=== PATIENT | female | born 1980 | race Caucasian/White ===

== ENCOUNTER 2019-05-04 10:25 | Outpatient (CLI) | payer OTHER, SELFPAY ==
--- NOTE | ~2019-05-04 | MM_ITS ---
EXAMINATION: MM screening [place] BI w talia HISTORY: Screening mammogram TECHNIQUE: Craniocaudal and mediolateral oblique 3-D tomosynthesis images were obtained and synthetic 2-D images were generated. CAD analysis was submitted and interpreted. COMPARISON: No prior mammogram is available for comparison at this institution. BREAST PARENCHYMAL COMPOSITION: The breasts are almost entirely fatty. FINDINGS: There are numerous punctate benign-appearing microcalcifications of the breast. There are several small left low-density circumscribed opacities most consistent with benign axillary tail and lower outer quadrant intramammary lymph nodes. There is an indeterminate approximately 3.8 mm opacity situated posteriorly in the upper right breast on MLO view. Diagnostic right mammogram is recommended for more definitive evaluation. Otherwise there is no evidence of suspicious mass, calcification, or architectural distortion to sugg est malignancy in either breast. IMPRESSION: 1. 3.8 mm indeterminate opacity situated posteriorly in the upper right breast on MLO view. 2. Diagnostic left mammogram is recommended, with ultrasound if required. BI-RADS Category 0: Incomplete: Needs additional imaging evaluation. Reviewed, dictated and finalized at location A.
== END 2019-05-04 10:26 | disposition home or self-care (01) ==
LOC: ANHIMG 10:31
PROVIDERS: Visit Provider Nurse Practitioner Family
DX: Z12.31 Encounter for screening mammogram for malignant neoplasm of breast (principal); R92.8 Other abnormal and inconclusive findings on diagnostic imaging of breast
CPT/HCPCS: 77063; 77067

== ENCOUNTER 2019-06-21 12:55 | Outpatient (CLI) | payer OTHER, SELFPAY ==
--- NOTE | ~2019-06-21 | MMUS_ITS ---
EXAMINATION: MM diagnostic britany RT w talia, US breast RT limited HISTORY: 3.8 mm indeterminate opacity noted posteriorly in the upper right breast on 05/04/2019 screen ing mammogram TECHNIQUE: Additional 3-D tomosynthesis images of the right breast were performed and synthetic 2-D i mages were generated. CAD analysis was submitted and interpreted. High resolution upper outer quadran t right breast ultrasound was performed. COMPARISON: 05/04/2019 bilateral digital screening mammogram BREAST PARENCHYMAL COMPOSITION: There are scattered areas of fibroglandular density. FINDINGS: MAMMOGRAPHIC FINDINGS: 2 small circumscribed benign-appearing opacities are noted posteriorly in the upper outer quadrant, m easuring approximately 6 mm or smaller, likely small benign intramammary lymph nodes. ULTRASOUND: No suspicious mass is noted. Small subcentimeter axillary tail lymph nodes. IMPRESSION: 1. No mammographic evidence of malignancy 2. Routine annual mammographic screening follow-up is recommended. BI-RADS Category 2: Benign finding(s). Reviewed, dictated and finalized at location A. IMPRESSION: 1. No mammographic evidence of malignancy 2. Routine annual mammographic screening follow-up is recommended. BI-RADS Category 2: Benign finding(s).
== END 2019-06-21 12:56 | disposition home or self-care (01) ==
LOC: ANHIMG 12:58
PROVIDERS: Visit Provider Nurse Practitioner Family
DX: R92.8 Other abnormal and inconclusive findings on diagnostic imaging of breast (principal)
CPT/HCPCS: 76642; 77061; 77065; G0279

== ENCOUNTER 2021-08-26 18:05 | Emergency (ER) | payer BC, SELFPAY ==
[2021-08-26 18:18] VITALS: BP 124/78; PULSE 70; RESP 16; TEMP 37.4; O2SAT 100
--- NOTE | 2021-08-26 18:18 | ED.FEMALEGU ---
HPI - Female Genitourinary General Chief complaint: Urogenital-Female Stated complaint: uti symptoms Time Seen by Provider: 08/26/21 18:18 Source: patient Mode of arrival: ambulatory Limitations: no limitations History of Present Illness HPI Narrative: 41-year-old female presents with complaint of urinary frequency, urgency dysuria for 3 days. Reports that her mom is a nurse and had leftover Bactrim and gave her 3 tablets. Patient states that your dysuria is worse today. No fever chills. No nausea vomiting. Denies back and flank pain. No recent antibiotic use. Last UTI was 1 year ago. All systems reviewed and negative except as noted above. Related Data Allergies Allergy/AdvReac Type Severity Reaction Status Date / Time Penicillins Allergy Mild Unknown Verified 08/26/21 18:23 Review of Systems Review of Systems: CONSTITUTIONAL: Denies fever, chills, or sweats. EYES: Denies visual changes, redness, or discharge. ENT: Denies rhinorrhea, congestion, sore throat, or otalgia. CARDIOVASCULAR: Denies chest pain, palpitations, or edema. RESPIRATORY: Denies cough or dyspnea. GASTROINTESTINAL: Denies abdominal pain, nausea, vomiting, or diarrhea. GENITOURINARY: Reports dysuria, urgency, frequency. Denies hematuria. SKIN: Denies rash or itching. MUSCULOSKELETAL: Denies back pain, joint pain, or myalgia. NEUROLOGIC: Denies headache, numbness, or weakness. PSYCHIATRIC: Denies anxiety or depression. All other systems reviewed are negative, except as documented in HPI. PMFSH Comments At time of signature, agree with nursing past medical, surgical, social and family history. There is no relevant family history pertinent to the presenting complaint. Exam Narrative: GENERAL: This is a well-nourished, well-developed patient, in no apparent distress. HEAD: normocephalic, atraumatic. EYES: PERRL. Sclera clear/white. Vision is grossly intact. EARS: External ears normal NOSE: External nose normal NECK: Neck supple, non-tender without lymphadenopathy, masses or thyromegaly. CARDIOVASCULAR: Regular rate and rhythm without murmurs, gallops, or rubs. RESPIRATORY: Clear to auscultation. Breath sounds equal bilaterally. No wheezes, rales, or rhonchi. SKIN: warm, Dry, intact with no suspicious lesions or rash, good texture and turgor. NEURO: awake, alert, and oriented to person, place and time. There were no obvious focal neurologic abnormalities. EXTREMITIES: No joint tenderness, effusion, or edema noted. Course Course Level of Care: Express Care Visit Vital Signs Vital signs: Vital Signs Temperature 37.4 C 08/26/21 18:18 Pulse Rate 70 08/26/21 18:18 Respiratory Rate 16 08/26/21 18:18 Blood Pressure 124/78 08/26/21 18:18 Pulse Oximetry 100 08/26/21 18:18 Oxygen Delivery Room Air 08/26/21 18:18 Temperature 37.4 C 08/26/21 18:18 Pulse Rate 70 08/26/21 18:18 Respiratory Rate 16 08/26/21 18:18 Blood Pressure 124/78 08/26/21 18:18 Pulse Oximetry 100 08/26/21 18:18 Oxygen Delivery Room Air 08/26/21 18:18 Reviewed MDM - Female Genitourinary MDM Narrative Medical decision making narrative: Urine analysis leukocytes 1+, positive nitrite, blood 3+. We will treat for urinary tract infection. Patient has taken 3 doses of Bactrim with no relief. Will start Macrobid Patient is aware of diagnosis, understands and agrees to treatment plan. Anticipatory guidance given. Patient agrees to follow-up as directed and is aware of reasons to seek care at the emergency department. Portions of this record may have been created with voice recognition software Lab Data Labs: Urine Glucose Negative Reference Range: Negative Urine Bilirubin Negative Reference Range: Negative Urine Ketone Negative Reference Rang
== END 2021-08-26 18:38 | disposition home or self-care (01) ==
PROVIDERS: Emergency Provider Nurse Practitioner Family; PCP Registered Nurse
DX: N39.0 Urinary tract infection, site not specified (principal)
CPT/HCPCS: 81003; 87077; 87086; 87186; 99213; G0463

== ENCOUNTER 2022-03-05 10:35 | Outpatient (CLI) | payer BC, SELFPAY ==
--- NOTE | ~2022-03-05 | MM_ITS ---
EXAMINATION: MM screening [place] BI w talia HISTORY: Screening mammogram TECHNIQUE: Craniocaudal and mediolateral oblique 3-D tomosynthesis images were obtained and synthetic 2-D images were generated. CAD analysis was submitted and interpreted. COMPARISON: 06/21/2019 diagnostic right mammogram and limited right breast ultrasound 05/04/2019 bilateral screening mammogram BREAST PARENCHYMAL COMPOSITION: There are scattered areas of fibroglandular density. FINDINGS: Small chronic circumscribed low-density bilateral axillary tail lymph nodes. There is no ev idence of suspicious mass, calcification, or architectural distortion to suggest malignancy in either breast. There has been no suspicious interval change. IMPRESSION: 1. No mammographic evidence of malignancy. 2. Recommend routine screening mammography in one year. BI-RADS Category 2: Benign finding(s). Reviewed, dictated and finalized at location A. L CLEANER
== END 2022-03-05 10:36 | disposition home or self-care (01) ==
PROVIDERS: PCP Registered Nurse; Visit Provider Registered Nurse
DX: Z12.31 Encounter for screening mammogram for malignant neoplasm of breast (principal)
CPT/HCPCS: 77063; 77067

== ENCOUNTER 2023-11-25 09:01 | Outpatient (CLI) | payer BC, SELFPAY ==
--- NOTE | ~2023-11-25 | MM_ITS ---
EXAMINATION: MM screening [place] BI w talia HISTORY: Screening TECHNIQUE: Craniocaudal and mediolateral oblique 3-D tomosynthesis images were obtained and synthetic 2-D images were generated. CAD analysis was submitted and interpreted. COMPARISON: Comparison to multiple prior studies sequentially, with oldest reviewed study dated 05/03. BREAST PARENCHYMAL COMPOSITION: Not dense: There are scattered areas of fibroglandular density. FINDINGS: There is no evidence of suspicious mass, calcification, or architectural distortion to sugg est malignancy in either breast. There has been no suspicious interval change. IMPRESSION: 1. No mammographic evidence of malignancy. 2. Recommend routine screening mammography in one year. BI-RADS Category 1: Negative Reviewed, dictated and finalized at location B.
== END 2023-11-25 09:02 | disposition home or self-care (01) ==
PROVIDERS: Visit Provider Registered Nurse
DX: Z12.31 Encounter for screening mammogram for malignant neoplasm of breast (principal)
CPT/HCPCS: 77063; 77067

== ENCOUNTER 2025-02-01 10:58 | Emergency (ER) | payer BC, SELFPAY ==
[2025-02-01 11:08] VITALS: BP 117/83; PULSE 90; RESP 16; TEMP 36.9; O2SAT 100
--- NOTE | 2025-02-01 12:17 | ED_ITS ---
HPI - General Adult General Chief complaint: Urogenital-Female Stated complaint: Uti Symptoms Source: patient Mode of arrival: ambulatory Limitations: no limitations History of Present Illness HPI narrative: Patient presents for evaluation of urinary symptoms since yesterday. Symptoms include dysuria, urinary frequency and low back pain. No fever, chills, nausea, vomiting or abdominal pain. She has UTI's about twice per year and current symptoms are consistent with previous UTI's. Related Data Allergies Allergy/AdvReac Type Severity Reaction Status Date / Time Penicillins Allergy Mild Unknown Verified 02/01/25 11:24 Review of Systems Review of Systems: CONSTITUTIONAL: Denies fever, chills, or sweats. EYES: Denies visual changes, redness, or discharge. ENT: Denies rhinorrhea, congestion, sore throat, or otalgia. CARDIOVASCULAR: Denies chest pain, palpitations, or edema. RESPIRATORY: Denies cough or dyspnea. GASTROINTESTINAL: Denies abdominal pain, nausea, vomiting, or diarrhea. GENITOURINARY: reports dysuria and urinary frequency. Denies other urinary symptoms SKIN: Denies rash or itching. MUSCULOSKELETAL: Reports low back pain. Denies joint pain, or myalgia. NEUROLOGIC: Denies headache, numbness, dizziness, or weakness. PSYCHIATRIC: Denies anxiety or depression. Course Course Emergency Course: This is a 44-year-old female who presented for evaluation of urinary symptoms. Urine dipstick is consistent with urinary tract infection. Will send urine culture. Will discharge with Macrobid. Increase hydration. [id number] agents for symptom management. Follow up with primary provider. Go to the ER for worsening symptoms. Patient in agreement with plan of care. Level of Care: Express Care Visit Vital Signs Vital signs: Vital Signs Temperature 36.9 C 02/01/25 11:08 Pulse Rate 90 02/01/25 11:08 Respiratory Rate 16 02/01/25 11:08 Blood Pressure 117/83 02/01/25 11:08 Pulse Oximetry 100 02/01/25 11:08 Temperature 36.9 C 02/01/25 11:08 Pulse Rate 90 02/01/25 11:08 Respiratory Rate 16 02/01/25 11:08 Blood Pressure 117/83 02/01/25 11:08 Pulse Oximetry 100 02/01/25 11:08 MDM Differential Diagnosis Differential Diagnosis: Cystitis versus pyelonephritis versus interstitial cystitis versus kidney stone versus other Discharge Plan Discharge Clinical Impression: Urinary tract infection Patient Disposition: Home Condition: Stable Instructions: Antibiotic Form, Urinary Tract Infection in Women (DC) Patient Language: Upper Sorbian Prescriptions: New nitrofurantoin monohyd/m-cryst [Macrobid] 100 mg capsule 100 mg PO Q12H 7 Days Qty: 14 0RF Rx Instructions: must administer with a meal/food No Action phenazopyridine [Pyridium] 200 mg tablet 200 mg PO TID PRN (Reason: pain) 3 Days Qty: 10 0RF nitrofurantoin monohyd/m-cryst [Macrobid] 100 mg capsule 100 mg PO Q12H 7 Days Qty: 14 0RF Follow-up/Referrals: PETE,IGNACIO CHATMAN [Primary Care Provider] Time of Disposition: 12:16
[2025-02-01 12:19] LABS: EDUAAPPEAR Cloudy; EDUABILI Negative (Negative); EDUABLOOD 3+ (Negative); EDUACOLOR1 Yellow; EDUAGLUCOSE Negative (Negative); EDUAKETONE Negative (Negative); EDUALEUKO 2+ (Negative); EDUANITRATE Negative (Negative); EDUAPH 5.5; EDUAPROTEIN Negative (Negative); EDUASPGRAVITY 1.025; EDUAUROBILI 0.2
== END 2025-02-01 12:21 | disposition home or self-care (01) ==
PROVIDERS: Emergency Provider Nurse Practitioner; PCP Nurse Practitioner Family
DX: N39.0 Urinary tract infection, site not specified (principal)
CPT/HCPCS: 81003; 87086; 99213; G0463